=== PATIENT | female | born 1975 | race Caucasian/White ===

== ENCOUNTER 2019-04-21 21:09 | Emergency (ER) | payer SELFPAY ==
--- OUTSIDE RECORDS SUMMARY | 2019-04-21 21:13 | XMS REPORT ---
:1975 [facility] Address [address] [place] [address] Dr. Granado [address] [place] [id number] Care Team Providers Name Role Phone Unavailable Unavailable Unavailable Problems This patient has no known problems. Allergies, Adverse Reactions, Alerts This patient has no known allergies or adverse reactions. Medications This patient has no known medications.
[2019-04-21] MEDS ORDERED: ONDANSETRON 4 MG (ODT) TAB ONE (22:44)
[2019-04-21] MEDS ORDERED: ACETAMIN/CAFFEINE/BUTALB TAB PO ONE (22:44)
--- NOTE | 2019-04-21 23:16 | EDPHYS ---
Physician Documentation [facility] Name: Gregory Khan Age: 43 yrs Sex: Female : 1975 Arrival Date: 04/21/2019 Time: 21:17 Bed 6 Private MD: ED Physician Jalil Price HPI: 04/22 02:21 This 43 yrs old Female presents to ER via Ambulatory with complaints of Ear tw4 Pain, High Blood Pressure. 02:38 The patient presents with pain. The complaints affect the right ear and left ear. tw4 Modifying factors: The symptoms are alleviated by nothing, the symptoms are aggravated by nothing. Associated signs and symptoms: The patient has no apparent associated signs or symptoms. The patient has not experienced similar symptoms in the past. 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 - Social history:: Smoking status: Patient/guardian denies using tobacco. - Ebola Screening: : No symptoms or risks identified at this time. ROS: 04/22 02:38 Constitutional: Negative for fever, chills, and weight loss, Eyes: Negative for injury, tw4 pain, redness, and discharge, Cardiovascular: Negative for chest pain, palpitations, and edema, Respiratory: Negative for shortness of breath, cough, wheezing, and pleuritic chest pain, Abdomen/GI: Negative for abdominal pain, nausea, vomiting, diarrhea, and constipation, Skin: Negative for injury, rash, and discoloration, Neuro: Negative for headache, weakness, numbness, tingling, and seizure. MS/extremity: Positive for pain. Exam: 02:38 Constitutional: This is a well developed, well nourished patient who is awake, alert, tw4 and in no acute distress. Head/Face: Normocephalic, atraumatic. ENT: Nares patent. No nasal discharge, no septal abnormalities noted. Tympanic membranes are normal and external auditory canals are clear. Oropharynx with no redness, swelling, or masses, exudates, or evidence of obstruction, uvula midline. Mucous membranes moist. Chest/axilla: Normal chest wall appearance and motion. Nontender with no deformity. No lesions are appreciated. Cardiovascular: Regular rate and rhythm with a normal S1 and S2. No gallops, murmurs, or rubs. Normal PMI, no JVD. No pulse deficits. Respiratory: Lungs have equal breath sounds bilaterally, clear to auscultation and percussion. No rales, rhonchi or wheezes noted. No increased work of breathing, no retractions or nasal flaring. Abdomen/GI: Soft, non-tender, with normal bowel sounds. No distension or tympany. No guarding or rebound. No evidence of tenderness throughout. Back: No spinal tenderness. No costovertebral tenderness. Full range of motion. MS/ Extremity: Pulses equal, no cyanosis. Neurovascular intact. Full, normal range of motion. Neuro: Awake and alert, GCS 15, oriented to person, place, time, and situation. Cranial nerves II-XII grossly intact. Motor strength 5/5 in all extremities. Sensory grossly intact. Cerebellar exam normal. Normal gait. Vital Signs: 04/21 21:36 BP 136 / 79; Pulse 88; Resp 16 S; Temp 97.9(O); Pulse Ox 98% on R/A; Weight 99.79 kg bb (R); Height 5 ft. 6 in. (167.64 cm) (R); Pain 10/10; 21:57 BP 128 / 73; Pulse 80; Resp 16; Temp 98; Pulse Ox 99% on R/A; ak1 22:34 BP 123 / 83; Pulse 80; Resp 14; Temp 98.2; Pulse Ox 98% on R/A; Pain 8/10; ak1 23:26 BP 113 / 76; Pulse 69; Resp 14; Temp 98.1; Pulse Ox 97% on R/A; Pain 5/10; ak1 21:36 Body Mass Index 35.51 (99.79 kg, 167.64 cm) MDM: 21:37 Patient medically screened. tw4 04/22 02:38 Differential diagnosis: otitis media, otitis externa. Data reviewed: vital signs, tw4 nurses notes. Data interpreted: Pulse oximetry: Interpretation: normal. Counseling: I had a detailed discussion with the patient and/or guardian regarding: the historical points, exam findings, and any diagnostic results supporting the discharge/admit diagnosis. Special discussion: I discussed with the patient/guardian in detail that at this point there is no indication for admission to the hospital. It is understood, however, that if the symptoms persist or worsen the patient needs to return immediately for re-evaluation. Administered Medications: 04/21 22:26 Drug: Zofran 4 mg Route: PO; ak1 22:51 Follow up: Response: No adverse reaction ak1 22:34 Drug: Fioricet - Esgic 325 mg-40 mg-50 mg 1 tab-caps Route: PO; ak1 22:51 Follow up: Response: No adverse reaction ak1 Disposition: 04/21/19 23:15 Discharged to Home. Impression: Headache. - Condition is Stable. - Discharge Instructions: General Headache Without Cause. - Prescriptions for Fiorinal 50- 325-40 mg Oral Capsule - take 1 capsule by ORAL route every 4 hours As needed - not to exceed 6 capsules per day; 20 capsule. Ibuprofen 800 mg Oral Tablet - take 1 tablet by ORAL route every 8 hours As needed take with food; 30 tablet. - Medication Reconciliation Form, Thank You Letter, Antibiotic Education, Prescription Opioid Use form. - Follow up: Private Physician; When: Upon discharge from the Emergency Department; Reason: If symptoms return, Recheck today's complaints, Continuance of care. - Problem is new. - Symptoms have improved. Signatures: Veronika Horta RN RN bb Kallie Mcallister RN RN lp1 Luciana Santoyo RN RN ak1 Jalil Price MD MD tw4 Corrections: (The following items were deleted from the chart) 23:26 23:15 04/21/2019 23:15 Discharged to Home. Impression: Headache. Condition is Stable. ak1 Forms are Medication Reconciliation Form, Thank You Letter, Antibiotic Education, Prescription Opioid Use. Follow up: Private Physician; When: Upon discharge from the Emergency Department; Reason: If symptoms return, Recheck today's complaints, Continuance of care. Problem is new. Symptoms have improved. tw4
--- NOTE | 2019-04-21 23:16 | ER ---
Nurse's Notes [facility] Name: Gregory Khan Age: 43 yrs Sex: Female : 1975 Arrival Date: 04/21/2019 Time: 21:17 Bed 6 Private MD: Diagnosis: Headache Presentation: 04/21 21:32 Presenting complaint: Patient states: she went to car show in [place] this weekend bb started feeling bad with headache, fever and still feels bad continues to have headache, fever, neck and throat pain pt took fever-cold medication at approx 1830 today. Transition of care: patient was not received from another setting of care. Onset of symptoms was April 20, 2019. Risk Assessment: Do you want to hurt yourself or someone else? Patient reports no desire to harm self or others. Initial Sepsis Screen: Does the patient meet any 2 criteria? No. Patient's initial sepsis screen is negative. Does the patient have a suspected source of infection? No. Patient's initial sepsis screen is negative. Care prior to arrival: None. 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 - Social history:: Smoking status: Patient/guardian denies using tobacco. - Ebola Screening: : No symptoms or risks identified at this time. Screenin:57 Abuse screen: Denies threats or abuse. Denies injuries from another. Nutritional ak1 screening: No deficits noted. Tuberculosis screening: No symptoms or risk factors identified. Fall Risk None identified. Assessment: 21:57 Reassessment: pt stated she "normally goes to [facility] and can not access mychart" for ak1 allergies. pt stated she knows she is allergic to a pain medication but can not stated which one. pt stated she believes she is allergic to an antibiotic but can not recall which one. General: Appears in no apparent distress. comfortable, Behavior is calm, cooperative, appropriate for age. Pain: Complains of pain in ear, throat, headache. Neuro: Level of Consciousness is awake, alert, obeys commands, Oriented to person, place, time, situation, Appropriate for age Tensile Tester are equal bilaterally Moves all extremities. Gait is steady, Speech is normal, Facial symmetry appears normal. Cardiovascular: No deficits noted. Respiratory: Airway is patent Respiratory effort is even, unlabored, Respiratory pattern is regular, symmetrical, Breath sounds are clear bilaterally. GI: Abdomen is round non-distended, obese, Bowel sounds present X 4 quads. Abd is soft and non tender X 4 quads. Reports nausea. : No signs and/or symptoms were reported regarding the genitourinary system. EENT: Ear canal pt c/o ear pain. Throat is clear pt c/o throat pain. Derm: No signs and/or symptoms reported regarding the dermatologic system. Musculoskeletal: No signs and/or symptoms reported regarding the musculoskeletal system. 22:04 Reassessment: pt stated she took OTC cold medication then took her blood pressure at ak home with a reading of 140/80's. pt educated on OTC medications that are safe for those with hypertension.. 23:16 Reassessment: Patient appears in no apparent distress at this time. No changes from ak1 previously documented assessment. Patient and/or family updated on plan of care and expected duration. Pain level reassessed. Patient is alert, oriented x 3, equal unlabored respirations, skin warm/dry/pink. Patient states feeling better. 23:26 Reassessment: Patient appears in no apparent distress at this time. No changes from ak1 previously documented assessment. Patient and/or family updated on plan of care and expected duration. Pain level reassessed. Patient is alert, oriented x 3, equal unlabored respirations, skin warm/dry/pink. no vomiting noted or reported while in ER6. pt with steady gait at discharge. Vital Signs: 21:36 BP 136 / 79; Pulse 88; Resp 16 S; Temp 97.9(O); Pulse Ox 98% on R/A; Weight 99.79 kg bb (R); Height 5 ft. 6 in. (167.64 cm) (R); Pain 10/10; 21:57 BP 128 / 73; Pulse 80; Resp 16; Temp 98; Pulse Ox 99% on R/A; ak1 22:34 BP 123 / 83; Pulse 80; Resp 14; Temp 98.2; Pulse Ox 98% on R/A; Pain 8/10; ak1 23:26 BP 113 / 76; Pulse 69; Resp 14; Temp 98.1; Pulse Ox 97% on R/A; Pain 5/10; ak1 21:36 Body Mass Index 35.51 (99.79 kg, 167.64 cm) ED Course: 21:17 Patient arrived in ED. es 21:34 Triage completed. bb 21:36 Arm band placed on Patient placed in an exam room, on a stretcher, on pulse oximetry. bb Family accompanied patient. 21:37 Jalil Price MD is Attending Physician. tw4 21:50 Luciana Santoyo, RN is Primary Nurse. ak1 21:57 Patient has correct armband on for positive identification. Placed in gown. Bed in low ak1 position. Call light in reach. Side rails up X 1. Adult w/ patient. Pulse ox on. NIBP on. Door closed. Lights dimmed. 23:16 No provider procedures requiring assistance completed. Patient did not have IV access ak1 during this emergency room visit. Administered Medications: 22:26 Drug: Zofran 4 mg Route: PO; ak1 22:51 Follow up: Response: No adverse reaction ak1 22:34 Drug: Fioricet - Esgic 325 mg-40 mg-50 mg 1 tab-caps Route: PO; ak1 22:51 Follow up: Response: No adverse reaction ak1 Outcome: 23:15 Discharge ordered by . tw4 23:25 Discharged to home ambulatory, with family. ak1 23:25 Condition: improved 23:25 Discharge instructions given to patient, family, Instructed on discharge instructions, follow up and referral plans. no drinking with medication, no driving heavy equipment, medication usage, Demonstrated understanding of instructions, follow-up care, medications, Prescriptions given X 2. 23:26 Patient left the ED. ak1 Signatures: Mylene Santoyo Brenda, RN RN bb Luciana Santoyo RN RN ak1 Jalil Price MD MD tw4
[2019-04-22 00:32] VITALS: BP 113/76; TEMP 98.1; O2SAT 97
== END 2019-04-21 23:26 | disposition home or self-care (01) ==
LOC: ER 21:09
DX: R51 Headache (principal); F43.10 Post-traumatic stress disorder, unspecified; Z88.8 Allergy status to other drugs, medicaments and biological substances
CPT/HCPCS: 99283